=== PATIENT | male | born 1995 | race Caucasian/White ===

== ENCOUNTER 2017-12-08 10:36 | Emergency (ER) | payer OTHER ==
[~2017-12-08] VITALS: Ht 172.7 cm; Wt 61.2 kg
[2017-12-08 10:41] VITALS: BP_SYST 120
[2017-12-08 11:12] LABS: STREPTOCOCCUS A SCREEN (RAPID) NEGATIVE (NEGATIVE)
[2017-12-08] MEDS ORDERED: NACL 0.9% 1,000 ML IV ONE (11:30)
[2017-12-08 12:30] VITALS: BP_SYST 122
== END 2017-12-08 12:30 | disposition home or self-care (01) ==
LOC: SED 10:36
DX: J10.1 Influenza due to other identified influenza virus with other respiratory manifestations (principal)
CPT/HCPCS: 36415; 86403; 86710; 87081; 96360; 99284

== ENCOUNTER 2018-03-05 22:10 | Emergency (ER) | payer OTHER ==
[~2018-03-05] VITALS: Ht 170.2 cm; Wt 81.6 kg
[2018-03-05 22:45] VITALS: BP_SYST 97
--- NOTE | 2018-03-05 22:45 | NUR ---
Patient triaged and placed in waiting room. VSS and patient appears in no acute distress at this time. Accompanied by family, awaiting available bed, and MD notified of need for MSE.
--- NOTE | 2018-03-05 22:46 | NUR ---
Patient to ER bed 2 to gown for evaluation. Side rails up.
--- NOTE | 2018-03-05 23:05 | NUR ---
Patient A/O x 4 presented to ED c/o back pain 03/06. Pt states pain started 1 day after getting a massage. Pt states pain with mobility. Patient VSS. Pt denies N&V. Family at bedside. No SOB or distress noted. Will continue to monitor.
--- NOTE | 2018-03-05 23:21 | NUR ---
ER Dr. Bansal at bedside examining patient.
[2018-03-06] MEDS ORDERED: KETOROLAC TROMETHAMINE 60 MG/2 ML VIAL IM ONE (00:45)
[2018-03-06] MEDS ORDERED: KETOROLAC TROMETHAMINE 30 MG VIAL ONE (01:03)
[2018-03-06 01:21] VITALS: BP_SYST 101
--- NOTE | 2018-03-06 01:21 | NUR ---
Patient given written and verbal discharge instructions and verbalizes understanding. ER MD discussed with patient the results and treatment provided. Patient in stable condition. ID arm band removed. Rx of Motrin and Tramadol given. Patient educated on pain management and to follow up with PMD. Pain Scale 2/10. Opportunity for questions provided and answered. Medication side effect fact sheet provided.
== END 2018-03-06 01:21 | disposition home or self-care (01) ==
LOC: SED 22:10
DX: M54.40 Lumbago with sciatica, unspecified side (principal)
CPT/HCPCS: 72100; 96372; 99284; J1885

== ENCOUNTER 2019-04-22 19:17 | Emergency (ER) | payer OTHER ==
[~2019-04-22] VITALS: Ht 170.2 cm; Wt 65.8 kg
[2019-04-22 19:20] VITALS: BP_SYST 125
--- NOTE | 2019-04-22 19:22 | NUR ---
Pt c/o swelling and soreness to throat after eating [employer]. Pt states that he also vomited and then became hoarse. Pt states that he feels like there is a ball that keeps rolling around in the right side of his throat. Airway patent, respirations even and non-labored, BBS clear. SPO2 98% RA. Pt with hoarse voice, speaks in full sentences. Family members at bedside.
--- NOTE | 2019-04-22 19:22 | NUR ---
Placed in room 5 . Placed on cardiac nurse specialist, blood pressure machine and pulse oximeter. To gown for exam. Side rails up. Report given to Carlos FARIA.
[2019-04-22] MEDS ORDERED: methylPREDNISolone SOD SUCC/PF 62.5 MG/ML VIAL IVP ONE (19:30)
[2019-04-22] MEDS ORDERED: DIPHENHYDRAMINE INJ 50 MG/ML VIAL IVP ONE (19:30)
[2019-04-22] MEDS ORDERED: IPRATROPIUM/ALBUTEROL SULFATE 3 ML AMPUL.NEB (DUONEB) INH ONE (19:30)
--- NOTE | 2019-04-22 19:30 | NUR ---
ER at bedside examining patient.
[2019-04-22] MEDS ORDERED: FAMOTIDINE PF 20 MG/2 ML VIAL IVP ONE (19:45)
--- NOTE | 2019-04-22 20:01 | NUR ---
RT at bedside. Respirations even and non-labored, BBS clear, SPO2 98% RA. Neb Tx in Progress.
--- NOTE | 2019-04-22 20:45 | NUR ---
Lab at bedside.
[2019-04-22 20:59] LABS: BASOPHILS % (AUTO) 0.9 % (0.0-2.0); EOSINOPHILS # (AUTO) 0.1 K/uL (0.0-0.4); EOSINOPHILS % (AUTO) 1.6 % (0.0-4.0); HEMATOCRIT 42.2 % (36-54); HEMOGLOBIN 14.7 g/dL (14.0-18.0); LYMPHOCYTES # (AUTO) 1.7 K/uL (1.0-5.5); LYMPHOCYTES % (AUTO) 41.6 % (20.5-51.5); MEAN CORPUSCULAR HEMOGLOBIN 33 pg (27-31); MEAN CORPUSCULAR HGB CONC 35 % (32-36); MEAN CORPUSCULAR VOLUME 95 fL (79.0-98.0); MONOCYTES # (AUTO) 0.3 K/uL (0.0-1.0); MONOCYTES % (AUTO) 6.8 % (1.7-9.3); NEUTROPHILS # (AUTO) 2.1 K/uL (1.8-7.7); NEUTROPHILS % (AUTO) 49.1 % (40.0-70.0); PLATELET COUNT (AUTO) 227 K/uL (130-430); RED BLOOD CELL COUNT(AUTO) 4.45 MIL/uL (4.2-6.2); RED CELL DISTRIBUTION WIDTH 13.7 % (9.0-15.0); WHITE BLOOD COUNT (AUTO) 4.2 K/uL (4.8-10.8)
--- NOTE | 2019-04-22 21:00 | NUR ---
Pt states that he feels much better, improvement to throat swelling and no longer hoarse. Respirations even and non-labored, BBS clear, VSS. No needs verbalized at this time.
[2019-04-22 21:23] LABS: CALCIUM 8.9 mg/dL (8.4-11.0); CREATININE 0.95 mg/dL (0.55-1.30); POTASSIUM 3.4 mmol/L (3.5-5.1)
[2019-04-22 21:28] LABS: ALBUMIN 3.7 g/dL (3.4-4.8); TOTAL BILIRUBIN 0.9 mg/dL (0.0-1.0)
[2019-04-22 22:45] VITALS: BP_SYST 119
--- NOTE | 2019-04-22 22:45 | NUR ---
Patient given written and verbal discharge instructions and verbalizes understanding. ER MD discussed with patient the results and treatment provided. Patient in stable condition. ID arm band removed. IV catheter removed intact and dressing applied, no active bleeding. Rx of Prednisone, Benadryl, and Epipen given. Patient educated on pain management and to follow up with PMD. Pain Scale 0/10. Opportunity for questions provided and answered. Medication side effect fact sheet provided.
== END 2019-04-22 22:45 | disposition home or self-care (01) ==
LOC: SED 19:17
DX: R22.1 Localized swelling, mass and lump, neck (principal); R11.10 Vomiting, unspecified; Z90.49 Acquired absence of other specified parts of digestive tract
CPT/HCPCS: 36415; 80053; 85025; 94640; 96374; 96375; 99283; J1200; J2930; J3490; J7620

== ENCOUNTER 2019-08-21 10:03 | Emergency (ER) | payer OTHER ==
[~2019-08-21] VITALS: Ht 170.2 cm; Wt 67.1 kg
[2019-08-21 10:29] VITALS: BP_SYST 132
--- NOTE | 2019-08-21 10:40 | NUR ---
pt arrives from home w/ c/o abdominal pain 05/06. Pt denies diarrhea and vomiting. Will continue to monitor
--- NOTE | 2019-08-21 10:50 | NUR ---
ER Dr. Bansal at bedside examining patient.
--- NOTE | 2019-08-21 11:00 | NUR ---
# 20 gauge angiocath placed to RAC. Use of asceptic technique. Opsite placed over site. Blood return noted. Blood for lab drawn from site. Flushed with 10 cc of normal saline. No evidence of infiltration noted. Patient tolerated well.
--- NOTE | 2019-08-21 11:03 | NUR ---
medicated the pt w/ toradol and zofran per MD order. Will reassess
[2019-08-21] MEDS ORDERED: NACL 0.9% 1,000 ML IV ONE (11:10)
[2019-08-21] MEDS ORDERED: ONDANSETRON HCL 4 MG/2 ML VIAL IVP ONE (11:15)
[2019-08-21] MEDS ORDERED: KETOROLAC TROMETHAMINE 30 MG VIAL IVP ONE (11:15)
[2019-08-21 11:31] LABS: BASOPHILS % (AUTO) 0.9 % (0.0-2.0); EOSINOPHILS # (AUTO) 0.4 K/uL (0.0-0.4); HEMATOCRIT 47.1 % (36-54); HEMOGLOBIN 16.6 g/dL (14.0-18.0); LYMPHOCYTES # (AUTO) 0.9 K/uL (1.0-5.5); LYMPHOCYTES % (AUTO) 18.6 % (20.5-51.5); MEAN CORPUSCULAR HEMOGLOBIN 34 pg (27-31); MEAN CORPUSCULAR HGB CONC 35 % (32-36); MEAN CORPUSCULAR VOLUME 96 fL (79.0-98.0); MONOCYTES # (AUTO) 0.4 K/uL (0.0-1.0); MONOCYTES % (AUTO) 8.6 % (1.7-9.3); NEUTROPHILS # (AUTO) 3.2 K/uL (1.8-7.7); NEUTROPHILS % (AUTO) 63.9 % (40.0-70.0); PLATELET COUNT (AUTO) 261 K/uL (130-430); RED BLOOD CELL COUNT(AUTO) 4.93 MIL/uL (4.2-6.2); RED CELL DISTRIBUTION WIDTH 13.3 % (9.0-15.0); WHITE BLOOD COUNT (AUTO) 5.1 K/uL (4.8-10.8)
[2019-08-21 11:49] LABS: CALCIUM 8.6 mg/dL (8.4-11.0); CREATININE 0.86 mg/dL (0.55-1.30); POTASSIUM 3.9 mmol/L (3.5-5.1)
[2019-08-21 11:54] LABS: ALBUMIN 4.3 g/dL (3.4-4.8); TOTAL BILIRUBIN 2.3 mg/dL (0.0-1.0)
--- NOTE | 2019-08-21 12:00 | NUR ---
pt reports feeling better. Abd pain is 3/10.
[2019-08-21 12:46] VITALS: BP_SYST 132
--- NOTE | 2019-08-21 12:51 | NUR ---
Patient given written and verbal discharge instructions and verbalizes understanding. ER MD discussed with patient the results and treatment provided. Patient in stable condition. ID arm band removed. IV catheter removed intact and dressing applied, no active bleeding. Rx of Zofran and Motrin given. Patient educated on pain management and to follow up with PMD. Pain Scale 3/10. Opportunity for questions provided and answered. Medication side effect fact sheet provided.
== END 2019-08-21 12:51 | disposition home or self-care (01) ==
LOC: SED 10:03
DX: K00.0 Anodontia (principal); M54.5 Low back pain; Z90.49 Acquired absence of other specified parts of digestive tract
CPT/HCPCS: 36415; 74176; 80053; 85025; 87040; 96361; 96374; 96375; 99284; J1885; J2405; J7030

== ENCOUNTER 2019-11-26 10:04 | Emergency (ER) | payer OTHER ==
[~2019-11-26] VITALS: Ht 172.7 cm; Wt 74.8 kg
[2019-11-26 10:12] VITALS: BP_SYST 130
--- NOTE | 2019-11-26 10:15 | NUR ---
Ambulatory to bed 4
--- NOTE | 2019-11-26 10:22 | NUR ---
ER Dr. Casillas at bedside examining patient.
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
[2019-11-26 12:06] VITALS: BP_SYST 127
--- NOTE | 2019-11-26 12:07 | NUR ---
Patient given written and verbal discharge instructions and verbalizes understanding. ER MD discussed with patient the results and treatment provided. Patient in stable condition. ID arm band removed. Rx of NONE given. Patient educated on pain management and to follow up with PMD. Pain Scale 0/10. Opportunity for questions provided and answered. Medication side effect fact sheet provided.
== END 2019-11-26 12:07 | disposition home or self-care (01) ==
LOC: SED 10:04
DX: S60.221A Contusion of right hand, initial encounter (principal); W18.39XA Other fall on same level, initial encounter; Y93.89 Activity, other specified; Y92.89 Other specified places as the place of occurrence of the external cause; Y99.8 Other external cause status
CPT/HCPCS: 99283

== ENCOUNTER 2022-01-27 15:16 | Emergency (ER) | payer OTHER ==
[~2022-01-27] VITALS: Ht 172.7 cm; Wt 68.0 kg
[2022-01-27 15:34] VITALS: BP_SYST 113
--- NOTE | 2022-01-27 15:42 | NUR ---
Patient to ER bed 4 to gown for evaluation. Side rails up. Report given to Aiden.
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
--- NOTE | 2022-01-27 16:10 | NUR ---
MD at bedside with patient.
[2022-01-27] MEDS ORDERED: ACETAMINOPHEN 500 MG TABLET PO ONE (16:15)
[2022-01-27] MEDS ORDERED: ACET325T53 PO ×2 (17:23→17:44)
[2022-01-27] MEDS ORDERED: IBUP-1970 PO ×2 (17:41→17:44)
[2022-01-27 17:50] VITALS: BP_SYST 116
--- NOTE | 2022-01-27 17:50 | NUR ---
Patient given written and verbal discharge instructions and verbalizes understanding. ER Dr. Mccoy discussed with patient the results and treatment provided. Patient in stable condition. ID arm band removed. Rx of tylenol and ibuprofen given. Patient educated on pain management and to follow up with PMD. Pain Scale 3. Opportunity for questions provided and answered. Medication side effect fact sheet provided.
== END 2022-01-27 17:50 | disposition home or self-care (01) ==
LOC: SED 15:16
DX: S63.501A Unspecified sprain of right wrist, initial encounter (principal); S63.616A Unspecified sprain of right little finger, initial encounter; Z79.899 Other long term (current) drug therapy; V43.52XA Car driver injured in collision with other type car in traffic accident, initial encounter; Y93.89 Activity, other specified; Y92.89 Other specified places as the place of occurrence of the external cause; Y99.8 Other external cause status
CPT/HCPCS: 70450-TC; 71046-TC; 73140-TC; 76376; 99284

== ENCOUNTER 2022-02-19 08:07 | Emergency (ER) | payer OTHER ==
[~2022-02-19] VITALS: Ht 172.7 cm; Wt 67.6 kg
[~2022-02-19 08:07] MED LIST: ACET325T53 PO; IBUP-1970 PO
[2022-02-19 08:20] VITALS: BP_SYST 102
--- NOTE | 2022-02-19 08:23 | NUR ---
Patient to ER bed 8 for evaluation. Side rails up. Report given to Vonnie FARIA.
--- NOTE | 2022-02-19 08:30 | NUR ---
Pt coming from home ambulatory with steady gait. Pt is A&Ox4. Skin intact. Pt c/o feelng fatigue, sore throat, nausea, appetite change, and loosing his voice since yesterday but worse this morning. Pt states he is vaccinated and did a home negative test and it came out negative. Pt has a fever of 100.2F other vitals stable. No chest pain and no sob. Denies vomiting and no diarrhea. NKA. No known medical conditions. Bed in lowest position.
--- NOTE | 2022-02-19 08:35 | NUR ---
IHSAN Lazaro at bedside examining patient.
--- NOTE | 2022-02-19 08:46 | NUR ---
Covid swab done and sent to lab.
[2022-02-19] MEDS ORDERED: IBUPROFEN 600 MG TABLET PO ONE (09:15)
--- NOTE | 2022-02-19 09:55 | NUR ---
Flu swab done and sent to lab.
--- NOTE | 2022-02-19 11:31 | NUR ---
DR POTTER AT BEDSIDE TO EVALUATE PT.
--- NOTE | 2022-02-19 11:54 | NUR ---
PCR test done and sent to lab.
[2022-02-19 12:10] VITALS: BP_SYST 128
--- NOTE | 2022-02-19 12:10 | NUR ---
Patient given written and verbal discharge instructions and verbalizes understanding. ER MD discussed with patient the results and treatment provided. Patient in stable condition. ID arm band removed. Patient educated on pain management and to follow up with PMD. Pain Scale 0/10. Opportunity for questions provided and answered. Medication side effect fact sheet provided.
== END 2022-02-19 12:10 | disposition home or self-care (01) ==
LOC: SED 08:07
DX: J02.9 Acute pharyngitis, unspecified (principal); M79.18 Myalgia, other site; R11.2 Nausea with vomiting, unspecified; Z20.822 Contact with and (suspected) exposure to COVID-19
CPT/HCPCS: 87426; 87635; 87804 ×2; 99283; C9803; U0003; 36415

== ENCOUNTER 2023-02-13 10:10 | Emergency (ER) | payer OTHER ==
[~2023-02-13] VITALS: Ht 172.7 cm; Wt 70.3 kg
[2023-02-13 10:10] VITALS: BP_SYST 105
--- NOTE | 2023-02-13 10:10 | NUR ---
BROUGHT BACK TO HALLWAY BED AND TRIAGED. WILL ASSUME CARE
--- NOTE | 2023-02-13 11:01 | NUR ---
ER at bedside examining patient.
[2023-02-13 11:10] VITALS: BP_SYST 110
--- NOTE | 2023-02-13 11:12 | NUR ---
Patient given written and verbal discharge instructions and verbalizes understanding. ER MD discussed with patient the results and treatment provided. Patient in stable condition. ID arm band removed. Opportunity for questions provided and answered. Medication side effect fact sheet provided.
== END 2023-02-13 11:09 | disposition home or self-care (01) ==
LOC: SED 10:10
DX: Z77.21 Contact with and (suspected) exposure to potentially hazardous body fluids (principal); Z79.899 Other long term (current) drug therapy
CPT/HCPCS: 99281

== ENCOUNTER 2023-05-04 18:13 | Emergency (ER) | payer OTHER ==
[~2023-05-04] VITALS: Ht 170.2 cm; Wt 72.6 kg
[2023-05-04 18:18] VITALS: BP_SYST 121; PULSE 86; RESP 18; TEMP 98; O2SAT 99
[2023-05-04] MEDS ORDERED: BACITRACIN 1 GM OINT TP ONE (21:00)
[2023-05-04] MEDS ORDERED: IBUP-1969 PO (21:02)
[2023-05-04] MEDS ORDERED: CYCL10TA24 PO (21:02)
[2023-05-04 21:39] VITALS: BP_SYST 120; PULSE 85; RESP 17; TEMP 98; O2SAT 99
== END 2023-05-04 21:39 | disposition home or self-care (01) ==
LOC: SED 18:13
DX: S13.4XXA Sprain of ligaments of cervical spine, initial encounter (principal); S80.11XA Contusion of right lower leg, initial encounter; S09.90XA Unspecified injury of head, initial encounter; Z79.899 Other long term (current) drug therapy; W22.8XXA Striking against or struck by other objects, initial encounter; Y93.89 Activity, other specified; Y92.89 Other specified places as the place of occurrence of the external cause; Y99.8 Other external cause status
CPT/HCPCS: 70450-TC; 76376; 99284

== ENCOUNTER 2024-05-10 03:19 | Emergency (ER) | payer OTHER ==
[~2024-05-10] VITALS: Ht 170.2 cm; Wt 72.6 kg
[~2024-05-10 03:19] MED LIST changes: +CYCL10TA24 PO; +IBUP-1969 PO
[2024-05-10 03:20] VITALS: BP_SYST 109; PULSE 63; RESP 20; TEMP 97.5; O2SAT 95
[2024-05-10] MEDS ORDERED: OLOP5DRO20 EACH EYE (03:43)
[2024-05-10 03:46] VITALS: BP_SYST 109; PULSE 63; RESP 20; TEMP 97.5; O2SAT 95
== END 2024-05-10 03:46 | disposition home or self-care (01) ==
LOC: SED 03:19
DX: H10.13 Acute atopic conjunctivitis, bilateral (principal); R10.9 Unspecified abdominal pain; R51.9 Headache, unspecified; G89.29 Other chronic pain; Z79.899 Other long term (current) drug therapy; Z79.2 Long term (current) use of antibiotics
CPT/HCPCS: 99282